=== PATIENT | male | born 1985 | race Caucasian/White ===

== ENCOUNTER 2016-05-28 23:14 | Emergency (ER) | payer SELFPAY ==
[2016-05-28] MEDS ORDERED: ASPIRIN 81 MG TABLET, CHEWABLE PO ONE (23:25)
[2016-05-29 00:03] VITALS: BP 127/77
--- NOTE | 2016-05-29 15:36 | EKG REPORT ---
SEVERITY:- NORMAL ECG - SINUS RHYTHM : Confirmed by: Rosalina Bernabe MD 29-May-2016 15:35:54
== END 2016-05-29 00:50 | disposition left against medical advice (07) ==
LOC: ER 23:14
DX: Z53.21 Procedure and treatment not carried out due to patient leaving prior to being seen by health care provider (principal)
CPT/HCPCS: 93005; 93010

== ENCOUNTER 2017-01-04 10:58 | Emergency (ER) | payer SELFPAY ==
[2017-01-04 11:02] VITALS: BP 141/76
--- NOTE | 2017-01-04 11:12 | ER Document Report ---
HPI - HPI Pain Level: 2 Notes: Patient is a 31-year-old male with no significant past medical history who presents the ED complaining of bilateral eye redness, watery discharge, itching , occasional burning, scant nasal congestion/discharge x6 days. Patient states that he just woke up with his eyes red and watery one morning. Patient states that he is able to move his eyes around without any pain or discomfort. He has not noticed any changes in his vision or headaches. Patient states that he does not have any foreign body sensation to his eye, and he does not wear any contacts. Patient denies any recent illness. No other concerns or complaints. Denies any headache, fever, head injury, neck pain, changes in vision, URI, sore throat, chest pain, palpitations, syncope, cough, shortness of breath, wheeze, dyspnea, abdominal pain, nausea/vomiting/diarrhea, urethral discharge, urinary retention, dysuria, hematuria, joint pains, or rash. Denies IV drug use. - ROS Notes: REVIEW OF SYSTEMS: CONSTITUTIONAL : Denies fever, chills, or sweats. Denies recent illness. EENT: see hpi CARDIOVASCULAR: Denies chest pain. Denies palpitations or racing or irregular heart beat. RESPIRATORY: Denies cough, cold, or chest congestion. Denies shortness of breath, difficulty breathing, or wheezing. GASTROINTESTINAL: Denies abdominal pain or distention. Denies nausea, vomiting , or diarrhea. Denies blood in vomitus, stools, or per rectum. Denies black, tarry stools. Denies constipation. GENITOURINARY: Denies difficulty urinating, painful urination, burning, frequency, blood in urine, or discharge. MUSCULOSKELETAL: Denies back or neck pain or stiffness. Denies joint pain or swelling. SKIN: Denies rash, lesions or sores. NEUROLOGICAL: Denies confusion or altered mental status. Denies passing out or loss of consciousness. Denies dizziness or lightheadedness. Denies headache. Denies weakness or paralysis or loss of use of either side. Denies problems with gait or speech. Denies sensory loss, numbness, or tingling. ALL OTHER SYSTEMS REVIEWED AND NEGATIVE. Dictation was performed using [employer] voice recognition software - DERM Skin Color: Normal Past Medical History - Social History Smoking Status: Unknown if Ever Smoked Family History: Reviewed & Not Pertinent Patient has suicidal ideation: No Patient has homicidal ideation: No Pulmonary Medical History: Reports: Hx Pneumonia Neurological Medical History: Reports: Hx Migraine - when he was young - grown out of it Renal/ Medical History: Denies: Hx Peritoneal Dialysis - Immunizations Immunizations up to date: Yes Hx Diphtheria, Pertussis, Tetanus Vaccination: Yes Vertical Provider Document - CONSTITUTIONAL Agree With Documented VS: Yes Notes: PHYSICAL EXAMINATION: GENERAL: Well-appearing, well-nourished and in no acute distress. A&Ox4 HEAD: Atraumatic, normocephalic. EYES: Pupils equal round and reactive to light, extraocular movements intact, sclera anicteric, conjunctiva are injected b/l. Watery discharge is noted. Non- tender to palp. No purulence. ENT: EAC clear b/l. TM's intact b/l without erythema, fluid, or perforation. Nares patent and without discharge. oropharynx clear without exudates. No tonsilar hypertrophy or erythema. Moist mucous membranes. No sinus tenderness. NECK: Normal range of motion, supple without lymphadenopathy. No rigidity/ meningismus. LUNGS: Breath sounds clear to auscultation bilaterally and equal. No wheezes rales or rhonchi. HEART: Regular rate and rhythm without murmurs, rubs, gallops. Musculoskeletal: FROM to passive/active. Strength 5+/5. Extremities: No cyanosis, clubbing, or edema b/l. NEUROLOGICAL: Cranial nerves grossly intact. Normal speech, normal gait. Normal sensory, motor exams PSYCH: Normal mood, normal affect. SKIN: Warm, Dry, normal turgor, no rashes or lesions noted. - INFECTION CONTROL TRAVEL OUTSIDE OF THE [place] IN LAST 30 DAYS: No - RESPIRATORY O2 Sat by Pulse Oximetry: 98 Course - Re-evaluation Re-evalutation: 01/04/17 11:35 Patient is an afebrile, well-hydrated, 31-year-old male who presents the ED with allergic conjunctivitis bilaterally along with a abrasion to then left inferior cornea Without evidence of foreign body, ulceration, or other uptake. Vitals are stable. PE is otherwise unremarkable. Visual acuity is intact. Low suspicion for any retained corneal or lid foreign body, deep space infection including orbital cellulitis/abscess, acute glaucoma, penetrating globe injury, retinal detachment, meningitis, sepsis, fracture, compartment syndrome. I will send home with a prescription for Polytrim to use as directed as well as Chromelin sodium drops. Conservative measures otherwise for symptoms with proper handwashing. Recheck with your PCM in 3-5 days. Schedule a f/u with Ophthalmology later this week. Return to the ED with any worsening/ concerning symptoms otherwise as reviewed in discharge. Patient is in agreement. - Vital Signs Vital signs: Temp Pulse Resp BP Pulse Ox 98.5 F 102 H 16 141/76 H 98 01/04/17 11:01 01/04/17 11:01 01/04/17 11:01 01/04/17 11:01 01/04/17 11:01 Procedures - Eye Procedure Bilateral Time completed: 11:30 Eye Irrigated w/ Saline (ccs): 20 Alcaine Drops Administered: Yes Fluorescein applied: Bilateral Notes: 01/04/17 11:20 Tetracaine utilized Lid everted and wiped Flourescein/wood's lamp- + abrasion to the lower cornea w/o ulceration, foreign body, or other uptake noted No complications Pt tolerated procedure well Discharge - Discharge Clinical Impression: Allergic conjunctivitis of both eyes Left corneal abrasion Qualifiers: Encounter type: initial encounter Qualified Code(s): S05.02XA - Injury of conjunctiva and corneal abrasion without foreign body, left eye, initial encounter Condition: Stable Disposition: HOME, SELF-CARE Instructions: Conjunctivitis, Allergic, Eyedrop Use ([facility]) Additional Instructions: keep eyes clean Avoid scratching/touching eyes Wash hands regularly Use eye drops as directed Maintain adequate fluid intake tylenol/ibuprofen as needed over the counter cold medication as needed for symptoms F/u: with your PCM in 2-3 days for a recheck Consider consult with Ophthalmology for ongoing/worsening symptoms Return to the ED with any worsening symptoms and/or development of fever, headache, changes in vision, eye pain, worsening eye redness, redness around the eyes, purulent discharge, sore throat, facial swelling, neck pain/stiffness , chest pain, palpitations, syncope, shortness of breath, trouble breathing, abdominal pain, n/v/d, blood in stool/urine, dysuria, or other worsening symptoms that are concerning to you. Prescriptions: Cromolyn Sodium [Crolom Opthalmic Drops] 1 - 2 drop OP QID PRN #1 bottle PRN Reason: Polymyxin B Sulf/Trimethoprim [Polytrim Eye Drops] 1 drop OD Q3H #10 ml Forms: Elevated Blood Pressure Referrals: JOEL RODRIGUEZ DO [ACTIVE STAFF] - 01/06/17
[2017-01-04] MEDS ORDERED: TETRACAINE HCL 0.5% OPH SOLN 2 ML ONE (11:25)
== END 2017-01-04 11:42 | disposition home or self-care (01) ==
LOC: ER 10:58
DX: S05.02XA Injury of conjunctiva and corneal abrasion without foreign body, left eye, initial encounter (principal); X58.XXXA Exposure to other specified factors, initial encounter; H10.13 Acute atopic conjunctivitis, bilateral
CPT/HCPCS: 99282

== ENCOUNTER 2017-03-02 17:18 | Emergency (ER) | payer OTHER ==
[2017-03-02] MEDS ORDERED: LIDOCAINE 1% INJ-PF (10 MG/ML) 30 ML SDV INJ ONE (17:44)
[2017-03-02] MEDS ORDERED: HYDROCODONE/ACETAMINOPHEN 5-325 MG TABLET PO ONE (18:26)
--- NOTE | 2017-03-02 18:46 | ER Document Report ---
ED General - General Chief Complaint: Facial Injury Stated Complaint: FALL Time Seen by Provider: 03/02/17 17:37 Mode of Arrival: Ambulatory Information source: Patient Notes: 32-year-old male [facility] from [facility] with concerns of "[facility]". Patient noted to have laceration to left cheek, abrasion inside his left ear, contusions to left face with swelling around his orbit. Patient denies any visual disturbance TRAVEL OUTSIDE OF THE [place] IN LAST 30 DAYS: No - HPI Onset: Just prior to arrival Onset/Duration: Sudden Quality of pain: Achy Severity: Moderate Pain Level: 2 Associated symptoms: Other Exacerbated by: Denies Relieved by: Denies Similar symptoms previously: No Recently seen / treated by doctor: No - Related Data Allergies/Adverse Reactions: codeine [Codeine] Allergy (Intermediate, Verified 01/04/17 11:01) N/V Past Medical History - Social History Smoking Status: Current Every Day Smoker Cigarette use (# per day): Yes Chew tobacco use (# tins/day): No Smoking Education Provided: No Frequency of alcohol use: None Drug Abuse: None Family History: Reviewed & Not Pertinent Patient has suicidal ideation: No Patient has homicidal ideation: No Pulmonary Medical History: Reports: Hx Pneumonia Neurological Medical History: Reports: Hx Migraine - when he was young - grown out of it Renal/ Medical History: Denies: Hx Peritoneal Dialysis - Immunizations Immunizations up to date: Yes Hx Diphtheria, Pertussis, Tetanus Vaccination: Yes Review of Systems - Review of Systems Notes: REVIEW OF SYSTEMS: CONSTITUTIONAL : Denies fever, chills, or sweats. Denies recent illness. EENT: Admits to pain around his left eye CARDIOVASCULAR: Denies chest pain. Denies palpitations or racing or irregular heart beat. Denies ankle edema. RESPIRATORY: Denies cough, cold, or chest congestion. Denies shortness of breath, difficulty breathing, or wheezing. GASTROINTESTINAL: Denies abdominal pain or distention. Denies nausea, vomiting , or diarrhea. Denies blood in vomitus, stools, or per rectum. Denies black, tarry stools. Denies constipation. GENITOURINARY: Denies difficulty urinating, painful urination, burning, frequency, blood in urine, or discharge. MUSCULOSKELETAL: Denies back or neck pain or stiffness. Denies joint pain or swelling. SKIN: Admits to cut the face HEMATOLOGIC : Denies easy bruising or bleeding. LYMPHATIC: Denies swollen, enlarged glands. NEUROLOGICAL: Denies confusion or altered mental status. Denies passing out or loss of consciousness. Denies dizziness or lightheadedness. Denies headache. Denies weakness or paralysis or loss of use of either side. Denies problems with gait or speech. Denies sensory loss, numbness, or tingling. Denies seizures. PSYCHIATRIC: Denies anxiety or stress. Denies depression, suicidal ideation, or homicidal ideation. ALL OTHER SYSTEMS REVIEWED AND NEGATIVE. Dictation was performed using [employer] recognition software PHYSICAL EXAMINATION: GENERAL: Overall well-appearing HEAD: Left facial swelling EYES: Ecchymosis around the left eye ENT: No septal hematoma NECK: Normal range of motion, supple without lymphadenopathy LUNGS: Breath sounds clear to auscultation bilaterally and equal. No wheezes rales or rhonchi. HEART: Regular rate and rhythm without murmurs ABDOMEN: Soft, nontender, nondistended abdomen. No guarding, no rebound. No masses appreciated. Musculoskeletal: Normal range of motion, no pitting or edema. No cyanosis. NEUROLOGICAL: Cranial nerves grossly intact. Normal speech, normal gait. Normal sensory, motor exams PSYCH: Normal mood, normal affect. SKIN: 4 cm laceration of the left cheek Physical Exam - Vital signs Vitals: Temp Pulse Resp BP Pulse Ox 98.5 F 89 17 123/82 97 03/02/17 17:22 03/02/17 17:22 03/02/17 17:22 03/02/17 17:22 03/02/17 17:22 Course - Re-evaluation Re-evalutation: 03/02/17 19:38 A 4 cm laceration was noted of the left cheek this was cleansed extensively, 4 sutures were placed, tetanus will be updated, CTs were performed of the head neck and face and a nasal fracture is noted otherwise the patient looks well. Patient has been watched in the emergency department and is otherwise medically stable. I am surprised that there is no orbital fracture and explained this to the patient but none was noted on CT. Pupils are equal round reactive to light he has full range of motion of the eyes with no limitation. There is no entrapment noted After performing a Medical Screening Examination, I estimate there is LOW risk for INTRACRANIAL HEMORRHAGE, UNSTABLE SPINE FRACTURE, CENTRAL CORD SYNDROME, CAUDA EQUINA, THORACIC AORTIC DISSECTION, PNEUMOTHORAX, PERFORATED BOWEL, RUPTURED ABDOMINAL AORTIC ANEURYSM, ACUTE TENDON RUPTURE, COMPARTMENT SYNDROME, or OPEN FRACTURE, thus I consider the discharge disposition reasonable. Also, there is no evidence or peritonitis, sepsis, or toxicity. I have reevaluated this patient multiple times and no significant life threatening changes are noted. The patient and I have discussed the diagnosis and risks, and we agree with discharging home to follow-up with their primary doctor with the understanding that symptoms and presentations can change. We also discussed returning to the Emergency Department immediately if new or worsening symptoms occur. We have discussed the symptoms which are most concerning (e.g., bloody stool, fever, changing or worsening pain, vomiting) that necessitate immediate return. - Vital Signs Vital signs: Temp Pulse Resp BP Pulse Ox 98.5 F 89 17 123/82 97 03/02/17 17:22 03/02/17 17:22 03/02/17 17:22 03/02/17 17:22 03/02/17 17:22 - Diagnostic Test Radiology reviewed: Image reviewed, Reports reviewed Discharge - Discharge Clinical Impression: Fall Qualifiers: Encounter type: initial encounter Qualified Code(s): W19.XXXA - Unspecified fall, initial encounter Nasal fracture Qualifiers: Encounter type: initial encounter Fracture type: closed Qualified Code(s): S02.2XXA - Fracture of nasal bones, initial encounter for closed fracture Cheek laceration Qualifiers: Encounter type: initial encounter Laterality: left Qualified Code(s): S01.412A - Laceration without foreign body of left cheek and temporomandibular area, initial encounter Condition: Stable Disposition: HOME, SELF-CARE Instructions: Soap Cleansing ([facility]), Laceration Care ([facility]) Additional Instructions: Follow-up in 5 days for removal of suture immediately if there is any sign of infection Prescriptions: Ibuprofen [Motrin 800 mg Tablet] 800 mg PO Q8H PRN #30 tab PRN Reason:
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
[2017-03-02] MEDS ORDERED: DIPH/PERTUSS(ACELL)/TETANUS VAC/PF 0.5 ML SYR (>=10YO) IM ONE (19:36)
[2017-03-02] MEDS ORDERED: IBUPROFEN 800 MG TABLET PO ONE (19:57)
[2017-03-02 20:48] VITALS: BP 121/74
== END 2017-03-02 19:51 | disposition home or self-care (01) ==
LOC: ER 17:18
PROC: 0HQ1XZZ Repair Face Skin, External Approach (ICD-10-PCS; principal; 2017-03-02)
DX: S01.412A Laceration without foreign body of left cheek and temporomandibular area, initial encounter (principal); S00.412A Abrasion of left ear, initial encounter; S00.12XA Contusion of left eyelid and periocular area, initial encounter; W19.XXXA Unspecified fall, initial encounter; Y92.199 Unspecified place in other specified residential institution as the place of occurrence of the external cause; F17.210 Nicotine dependence, cigarettes, uncomplicated; Z88.6 Allergy status to analgesic agent
CPT/HCPCS: 99284; 70450; 70486; 72125; 12013; J3490

== ENCOUNTER 2017-05-23 04:13 | Emergency (ER) | payer OTHER ==
--- NOTE | 2017-05-23 04:44 | RADIOLOGY REPORT (SQ) ---
EXAM DESCRIPTION: HAND RIGHT 3 VIEWS CLINICAL HISTORY: 32 years, Male, injury COMPARISON: None. NUMBER OF VIEWS: 3 Findings: Bones, joints, and soft tissues of HAND RIGHT appear intact. No significant effusion. IMPRESSION: No acute findings.
[2017-05-23] MEDS ORDERED: IBUPROFEN 600 MG TABLET PO ONE (05:09)
[2017-05-23] MEDS ORDERED: CLINDAMYCIN HCL 150 MG CAPSULE PO ONE (05:09)
[2017-05-23] MEDS ORDERED: ONDANSETRON 4 MG TAB.RAPDIS PO ONE (05:09)
--- NOTE | 2017-05-23 05:14 | ER Document Report ---
ED General - General Chief Complaint: Finger Injury Stated Complaint: FINGER INJURY Time Seen by Provider: 05/23/17 04:38 Notes: Patient is a 32-year-old male who says he externally hit his finger several times with a hammer. Patient says he hit his right middle finger. 7 a few days ago but the last couple hours he has noticed some swelling around the edge of the nail. He says is very painful. No other complaints at this time. TRAVEL OUTSIDE OF THE [place] IN LAST 30 DAYS: No - Related Data Allergies/Adverse Reactions: codeine [Codeine] Allergy (Intermediate, Verified 01/04/17 11:01) N/V Past Medical History - Social History Smoking Status: Current Every Day Smoker Chew tobacco use (# tins/day): No Frequency of alcohol use: Occasional Drug Abuse: None Family History: Reviewed & Not Pertinent Patient has suicidal ideation: No Patient has homicidal ideation: No Pulmonary Medical History: Reports: Hx Pneumonia Neurological Medical History: Reports: Hx Migraine - when he was young - grown out of it Renal/ Medical History: Denies: Hx Peritoneal Dialysis - Immunizations Immunizations up to date: Yes Hx Diphtheria, Pertussis, Tetanus Vaccination: Yes Review of Systems - Review of Systems Notes: My Normal Review Basic REVIEW OF SYSTEMS: CONSTITUTIONAL : Denies fever, chills, or sweats. Denies recent illness. MUSCULOSKELETAL: Right middle finger pain. SKIN: Denies rash or skin lesions. NEUROLOGICAL: Denies sensory or motor loss. ALL OTHER SYSTEMS REVIEWED AND NEGATIVE. Physical Exam - Vital signs Vitals: Temp Pulse Resp BP Pulse Ox 98 F 99 18 151/97 H 96 05/23/17 04:17 05/23/17 04:17 05/23/17 04:17 05/23/17 04:17 05/23/17 04:17 - Notes Notes: General Appearance: Well nourished, alert, cooperative, no acute distress, moderate obvious discomfort. Vitals: reviewed, See vital signs table. Extremities: strength 5/5 in all extremities, good pulses in all extremities, patient has some swelling in the paronychia of the middle finger of the right hand. Consistent with paronychial infection. Also slight bruising from where he hit with a hammer as well. This is on the distal portion of the finger. There is no redness or swelling into the remainder of the finger. Neuro: speech clear, oriented x 3, normal affect, responds appropriately to questions. Course - Re-evaluation Re-evalutation: 05/23/17 05:46 I made a small incision in the paronychia with an 18-gauge needle. The slough pus to drain. Patient feels much improved. I will place patient on antibiotics. I encourage him to return to ER immediately if he has recurrent swelling, fevers, worsening pain, or feels unwell. Patient agrees with plan will be discharged home. Dictation of this chart was performed using voice recognition software; therefore, there may be some unintended grammatical errors. - Vital Signs Vital signs: Temp Pulse Resp BP Pulse Ox 98 F 99 18 151/97 H 96 05/23/17 04:17 05/23/17 04:17 05/23/17 04:17 05/23/17 04:17 05/23/17 04:17 Discharge - Discharge Clinical Impression: Paronychia Condition: Good Disposition: HOME, SELF-CARE Additional Instructions: Please return to the ER immediately if you develop recurrence of swelling, fevers, or worsening pain. Please take the antibiotics as prescribed. Please keep your finger covered when at work. Prescriptions: Clindamycin HCl 300 mg PO ASDIR #56 capsule
[2017-05-23 06:37] VITALS: BP 125/66
== END 2017-05-23 06:34 | disposition home or self-care (01) ==
LOC: ER 04:13
DX: L03.011 Cellulitis of right finger (principal); M79.644 Pain in right finger(s); W27.8XXA Contact with other nonpowered hand tool, initial encounter; Y99.0 Civilian activity done for income or pay; F17.200 Nicotine dependence, unspecified, uncomplicated; Z88.5 Allergy status to narcotic agent
CPT/HCPCS: 99283; 73130; 10060; S0119

== ENCOUNTER 2017-05-28 20:28 | Emergency (ER) | payer SELFPAY ==
--- NOTE | 2017-05-28 21:58 | ER Document Report ---
HPI - HPI Pain Level: 4 Context: Patient is a 32-year-old male presents emergent primary with a chief complaint of posterior neck abscess. Patient states his been there for about 4 days but got worse today so he tried to pop it at home. He has been taking clindamycin for a paronychia on his hand. He admits to a history of abscesses. Is a current smoker. Denies any fevers or chills Past Medical History - Social History Smoking Status: Current Every Day Smoker Family History: Reviewed & Not Pertinent Pulmonary Medical History: Reports: Hx Pneumonia Neurological Medical History: Reports: Hx Migraine - when he was young - grown out of it Renal/ Medical History: Denies: Hx Peritoneal Dialysis - Immunizations Immunizations up to date: Yes Hx Diphtheria, Pertussis, Tetanus Vaccination: Yes Vertical Provider Document - CONSTITUTIONAL Agree With Documented VS: Yes Notes: PHYSICAL EXAM GENERAL: Alert, interacts well. HEAD: Normocephalic, atraumatic. EYES: Pupils equal, round, and reactive to light. Extraocular movements intact. ENT: Oral mucosa moist, tongue midline. NECK: Full range of motion. Supple. Trachea midline. NEUROLOGICAL: Alert and oriented x4. Normal speech. PSYCH: Normal affect, normal mood. SKIN: Warm, dry, normal turgor. Abscess with surrounding cellulitis in the posterior neck with central fluctuance and scabbing. - INFECTION CONTROL TRAVEL OUTSIDE OF THE [place] IN LAST 30 DAYS: No Course - Re-evaluation Re-evalutation: 05/28/17 23:03 Patient is a 32-year-old male presents with an abscess in the posterior neck. Patient otherwise hemodynamically stable, no acute distress and afebrile. Site was anesthetized and I indeed with minimal purulent drainage. No packing was placed. Patient educated on proper wound care and initiated on additional antibiotic coverage. Patient given strict return precautions otherwise stable for discharge home - Vital Signs Vital signs: Temp Pulse Resp BP Pulse Ox 99.2 F 110 H 153/105 H 98 05/28/17 20:46 05/28/17 20:46 05/28/17 20:46 05/28/17 20:46 Procedures - Incision and Drainage Posterior Neck Type: Simple Anesthetic type: 1% Lidocaine mL's of anesthetic: 2 Blade size: 11 I&D procedure: Betadine prep applied Incision Method: Incision made by scalpel Discharge - Discharge Clinical Impression: Abscess Condition: Good Disposition: HOME, SELF-CARE Instructions: Abscess ([facility]), Cephalexin ([facility]), Post Incision and Drainage Prescriptions: Cephalexin Monohydrate [Keflex 500 mg Capsule] 500 mg PO Q6H 5 Days capsule Forms: Elevated Blood Pressure Referrals: NIMISHA TINOCO MD [ACTIVE STAFF] - Follow up in 3-5 days
[2017-05-28] MEDS ORDERED: CEPHALEXIN 500 MG CAPSULE PO ONE (22:09)
[2017-05-28] MEDS ORDERED: ACETAMINOPHEN 325 MG TABLET PO ONE (22:09)
[2017-05-28] MEDS ORDERED: IBUPROFEN 800 MG TABLET PO ONE (22:09)
[2017-05-28 23:26] VITALS: BP 135/101
== END 2017-05-28 23:26 | disposition home or self-care (01) ==
LOC: ER 20:28
DX: L02.11 Cutaneous abscess of neck (principal); L03.221 Cellulitis of neck; L03.019 Cellulitis of unspecified finger; F17.200 Nicotine dependence, unspecified, uncomplicated
CPT/HCPCS: 99283

== ENCOUNTER 2017-05-31 15:27 | Emergency (ER) | payer OTHER ==
[2017-05-31] MEDS ORDERED: ONDANSETRON 4 MG TAB.RAPDIS PO ONE (15:48)
[2017-05-31] MEDS ORDERED: IBUPROFEN 800 MG TABLET PO ONE (15:48)
[2017-05-31] MEDS ORDERED: ACETAMINOPHEN 325 MG TABLET PO ONE (15:48)
[2017-05-31] MEDS ORDERED: SULFAMETHOXAZOLE/TRIMETHOPRIM 800-160 MG TABLET PO ONE (15:48)
[2017-05-31] MEDS ORDERED: CEPHALEXIN 500 MG CAPSULE PO ONE (15:48)
[2017-05-31] MEDS ORDERED: LIDOCAINE 4%/TETRACAINE 0.5%/EPI 0.18% 5 ML TOPICAL SOLN TOP ONE (15:48)
--- NOTE | 2017-05-31 15:48 | ER Document Report ---
HPI - HPI Patient complains to provider of: neck abscess Onset: Last week Context: 32 yo male from the skilled nursing needs recheck on post. neck abscess incised few days ago. Was not able to take the antibiotics bc he went to skilled nursing. Associated Symptoms: None Exacerbated by: Denies Relieved by: Denies - ROS ROS below otherwise negative: Yes Systems Reviewed and Negative: Yes All other systems reviewed and negative Past Medical History - General Information source: Patient - Social History Smoking Status: Current Every Day Smoker Frequency of alcohol use: None Drug Abuse: None Lives with: Family Family History: Reviewed & Not Pertinent Pulmonary Medical History: Reports: Hx Pneumonia Neurological Medical History: Reports: Hx Migraine - when he was young - grown out of it Renal/ Medical History: Denies: Hx Peritoneal Dialysis Surgical Hx: Negative - Immunizations Immunizations up to date: Yes Hx Diphtheria, Pertussis, Tetanus Vaccination: Yes Vertical Provider Document - CONSTITUTIONAL Agree With Documented VS: Yes Exam Limitations: No Limitations General Appearance: No Apparent Distress - INFECTION CONTROL TRAVEL OUTSIDE OF THE [place] IN LAST 30 DAYS: No - HEENT HEENT: Normocephalic - NECK Neck: Supple Notes: absces central post neck with central crusting exudate, inflamed surrounding tissue/ tender, and suspect persistant abscess - RESPIRATORY Respiratory: Breath Sounds Normal, No Respiratory Distress - CARDIOVASCULAR Cardiovascular: Regular Rate - NEURO Level of Consciousness: Awake, Alert - DERM Integumentary: Warm, Abscess - see above Course - Re-evaluation Re-evalutation: 05/31/17 Procedure: L.E.T softened the crust, removed the exudate, healthy tissue base of absecss. Discharge - Discharge Clinical Impression: neck abscess Condition: Good Disposition: HOME, SELF-CARE Instructions: Abscess ([facility]), Cephalexin ([facility]), Sulfa Medications ([facility]), Trimethoprim-Sulfa ([facility]), Warm Packs ([facility]) Additional Instructions: warm compress three times per day keflex 4 times per day spetra DS 2 times per day recheck abscess in 48 hours motrin 800 mg three times per day as needed for pain Prescriptions: Ibuprofen [Motrin 800 mg Tablet] 800 mg PO Q8HP PRN #30 tablet PRN Reason: Cephalexin Monohydrate [Keflex 500 mg Capsule] 500 mg PO QID #28 capsule Sulfamethoxazole/Trimethoprim [Sulfamethoxazole-Tmp Ds Tablet] 1 each PO BID # 14 tablet
[2017-05-31 15:58] VITALS: BP 118/81
== END 2017-05-31 16:50 | disposition home or self-care (01) ==
LOC: ER 15:27
DX: Z48.817 Encounter for surgical aftercare following surgery on the skin and subcutaneous tissue (principal); L02.11 Cutaneous abscess of neck; T36.96XA Underdosing of unspecified systemic antibiotic, initial encounter; Z91.128 Patient's intentional underdosing of medication regimen for other reason; Y92.149 Unspecified place in prison as the place of occurrence of the external cause; F17.200 Nicotine dependence, unspecified, uncomplicated
CPT/HCPCS: 99283; S0119; J3490

== ENCOUNTER 2018-01-15 22:29 | Emergency (ER) | payer SELFPAY ==
[2018-01-16] MEDS ORDERED: CEFTRIAXONE INJ 250 MG VIAL IM ONE (01:10)
[2018-01-16] MEDS ORDERED: AZITHROMYCIN 250 MG TABLET PO ONE (01:10)
[2018-01-16] MEDS ORDERED: LIDOCAINE 1% INJ-PF (10 MG/ML) 30 ML SDV INJ ONE (01:10)
--- NOTE | 2018-01-16 01:20 | ER Document Report ---
HPI - HPI Patient complains to provider of: Penile discharge Time Seen by Provider: 01/16/18 00:27 Onset: This morning Onset/Duration: Gradual Quality of pain: Burning Pain Level: 3 Context: Patient presents complaining of penile discharge and dysuria that started today. Patient denies any fever or back pain. Patient is concerned about possible sexually transmitted infection Associated Symptoms: Other - Penile discharge Exacerbated by: Denies Relieved by: Denies Similar symptoms previously: Yes Recently seen / treated by doctor: No - ROS ROS below otherwise negative: Yes Systems Reviewed and Negative: Yes All other systems reviewed and negative - CONSTITUTIONAL Constitutional: DENIES: Fever, Chills - EENT EENT: DENIES: Sore Throat, Ear Pain, Eye problems - NEURO Neurology: DENIES: Headache - GASTROINTESTINAL Gastrointestinal: DENIES: Abdominal Pain - URINARY Urinary: REPORTS: Dysuria. DENIES: Urgency, Frequency - MUSCULOSKELETAL Musculoskeletal: DENIES: Extremity pain, Back Pain - DERM Skin Color: Normal Skin Problems: None Past Medical History - General Information source: Patient - Social History Smoking Status: Current Every Day Smoker Chew tobacco use (# tins/day): No Frequency of alcohol use: None Drug Abuse: None Occupation: [employer] Family History: Reviewed & Not Pertinent Patient has suicidal ideation: No Patient has homicidal ideation: No Pulmonary Medical History: Reports: Hx Pneumonia Neurological Medical History: Reports: Hx Migraine - when he was young - grown out of it Renal/ Medical History: Denies: Hx Peritoneal Dialysis Surgical Hx: Negative - Immunizations Immunizations up to date: Yes Hx Diphtheria, Pertussis, Tetanus Vaccination: Yes Vertical Provider Document - CONSTITUTIONAL Agree With Documented VS: Yes Exam Limitations: No Limitations General Appearance: WD/WN, No Apparent Distress - INFECTION CONTROL TRAVEL OUTSIDE OF THE [place] IN LAST 30 DAYS: No - HEENT HEENT: Atraumatic, Normal ENT Exam, Normocephalic - NECK Neck: Normal Inspection - RESPIRATORY Respiratory: Breath Sounds Normal, No Respiratory Distress - CARDIOVASCULAR Cardiovascular: Regular Rate, Regular Rhythm - GI/ABDOMEN Gastrointestinal: Abdomen Soft, Abdomen Non-Tender - REPRODUCTIVE Male Genitalia: Abnormal Inspection - Yellow discharge noted from urethra, RN is standby Notes: Normal cremasteric reflex, no scrotal tenderness, patient with bilateral inguinal lymphadenopathy - BACK Back: Normal Inspection. negative: CVA Tenderness-Right, CVA Tenderness-Left - MUSCULOSKELETAL/EXTREMETIES Musculoskeletal/Extremeties: MAEW, FROM - NEURO Level of Consciousness: Awake, Alert, Appropriate Motor/Sensory: No Motor Deficit - DERM Integumentary: Warm, Dry Course - Re-evaluation Re-evalutation: 01/16/18 Patient encouraged to follow-up with the health department if he would like any additional testing such as HIV testing. Safe sex practices encouraged. Patient without any testicular tenderness, no concern for epididymitis or UTI at this time. - Vital Signs Vital signs: Temp Pulse Resp BP Pulse Ox 97.7 F 102 H 18 142/91 H 100 01/15/18 22:33 01/15/18 22:33 01/15/18 22:33 01/15/18 22:33 01/15/18 22:33 - Laboratory Laboratory results interpreted by me: 01/16/18 02:34 Labs- Entire Visit 01/16/18 01/16/18 00:45 00:45 Urine Color YELLOW Urine Appearance CLEAR Urine pH 6.0 Ur Specific [place] 1.021 Urine Protein NEGATIVE Urine Glucose (UA) NEGATIVE Urine Ketones NEGATIVE Urine Blood NEGATIVE Urine Nitrite NEGATIVE Urine Bilirubin NEGATIVE Urine Urobilinogen 4.0 H Ur Leukocyte Esterase NEGATIVE Urine WBC (Auto) 1 Urine RBC (Auto) 0 Urine Mucus (Auto) RARE Urine Ascorbic Acid NEGATIVE Chlamydia DNA (PCR) Cancelled N.gonorrhoeae DNA (PCR) Cancelled Discharge - Discharge Clinical Impression: Penile discharge, Urethritis Condition: Stable Disposition: HOME, SELF-CARE Instructions: Azithromycin ([facility]), Rocephin ([facility]), Urethritis ([facility]) Additional Instructions: Return immediately for any new or worsening symptoms Followup with your primary care provider, call tomorrow to make a followup appointment Cultures are pending, will call if you need any different treatment Follow-up at the health department for a recheck Referrals: [facility]ALTH DEPT,[facility] [NO LOCAL MD] - Follow up as needed
[2018-01-16 01:25] LABS: APPEARANCE,URINE CLEAR; BILIRUBIN,URINE NEGATIVE (NEGATIVE); COLOR,URINE YELLOW; GLUCOSE, URINE NEGATIVE (NEGATIVE); KETONES,URINE NEGATIVE (NEGATIVE); LEUKOCYTE ESTERASE,URINE NEGATIVE (NEGATIVE); NITRITE,URINE NEGATIVE (NEGATIVE); PROTEIN,URINE NEGATIVE (NEGATIVE); URINE SPECIFIC GRAVITY 1.021
[2018-01-16 01:56] VITALS: BP 119/75
[2018-01-16 03:06] LABS: CHLAM PCR NOT DETECTED (NOT DETECT); GON PCR DETECTED (NOT DETECT)
== END 2018-01-16 01:58 | disposition home or self-care (01) ==
LOC: ER 22:29
DX: N34.2 Other urethritis (principal); R36.9 Urethral discharge, unspecified; R30.0 Dysuria; F17.200 Nicotine dependence, unspecified, uncomplicated
CPT/HCPCS: 99283; 96372; 81001; 87491; 87591; J3490; J0696

== ENCOUNTER 2018-02-11 13:15 | Emergency (ER) | payer SELFPAY ==
[2018-02-11] MEDS ORDERED: NALOXONE HCL INJ 2 MG/2 ML DISP.SYRIN IV ONE (13:17)
--- NOTE | 2018-02-11 13:23 | ER Document Report ---
ED General - General Stated Complaint: POSSIBLE OVERDOSE Time Seen by Provider: 02/11/18 13:17 TRAVEL OUTSIDE OF THE [place] IN LAST 30 DAYS: No - HPI Notes: Patient is a 33-year-old male that presents to the emergency department for chief complaint of heroin overdose. Patient was dropped off in the lobby by another male. Triage was told that patient became unresponsive in the car and reportedly the male that dropped him off was asking if we had any Narcan. That male left prior to me being able to talk to him. Initial HPI limited because of patient's unresponsive state Past Medical History: Negative Past Surgical History: Negative Social History: Heroin abuse. Daily tobacco. Denies alcohol. Family History: Reviewed and noncontributory for presenting illness Allergies: Reviewed, see documented allergy list. REVIEW OF SYSTEMS: PHYSICAL EXAMINATION: Vital signs reviewed, nursing noted reviewed. GENERAL: Unresponsive, GCS 3 HEAD: Atraumatic, normocephalic. EYES: Pinpoint minimally reactive pupils, sclera anicteric, conjunctiva are injected. ENT: nares patent, oropharynx clear without exudates. Moist mucous membranes. NECK: supple without lymphadenopathy LUNGS: Apneic HEART: Tachycardic and regular rhythm without murmurs ABDOMEN: Soft No masses appreciated. EXTREMITIES: Nontender, good range of motion, no pitting or edema. NEUROLOGICAL: GCS 3. Urine and fecal incontinence SKIN: Warm, Dry, normal turgor, bilateral antecubital fossa pinpoint puncture wounds with no bleeding consistent with IV drug use - Related Data Allergies/Adverse Reactions: codeine [Codeine] Allergy (Intermediate, Verified 02/11/18 13:29) N/V Past Medical History - Social History Smoking Status: Current Every Day Smoker Family History: Reviewed & Not Pertinent Pulmonary Medical History: Reports: Hx Pneumonia Neurological Medical History: Reports: Hx Migraine - when he was young - grown out of it Renal/ Medical History: Denies: Hx Peritoneal Dialysis - Immunizations Immunizations up to date: Yes Hx Diphtheria, Pertussis, Tetanus Vaccination: Yes Physical Exam - Vital signs Vitals: Resp BP Pulse Ox 13 114/82 98 02/11/18 13:26 02/11/18 13:26 02/11/18 13:26 Course - Re-evaluation Re-evalutation: 02/11/18 13:22 Patient arrived with a GCS of 3 and was completely apneic. Bag valve mask ventilation was initiated. After 2 mg IV Narcan patient had complete return to normal mentation. He now was a GCS of 15. He does endorse heroin injection prior to arrival in the emergency room. He denies any chronic medical issues or surgeries in the past. He does not recall overdosing in the past. He has no complaints currently. Patient placed on telemetry monitoring. 02/11/18 16:19 Patient has remained hemodynamically stable and breathing well on room air for the last 3 hours. He will be discharged home in stable condition. He was discharged to a sober caregiver. He was counseled on heroin abuse. - Vital Signs Vital signs: Temp Pulse Resp BP Pulse Ox 98.1 F 13 109/77 98 02/11/18 15:33 02/11/18 15:01 02/11/18 15:01 02/11/18 15:01 Critical Care Note - Critical Care Note Total time excluding time spent on procedures (mins): 35 Comments: Patient unresponsive with no spontaneous respirations at presentation. He was stabilized but has a high potential for clinical deterioration. Multiple frequent re-evaluations and clinical monitoring of patient's respiratory status Discharge - Discharge Clinical Impression: Heroin overdose Qualifiers: Encounter type: initial encounter Injury intent: accidental or unintentional Qualified Code(s): T40.1X1A - Poisoning by heroin, accidental (unintentional), initial encounter Condition: Stable Disposition: HOME, SELF-CARE Instructions: Overdose ([facility]) Additional Instructions: Please return to the emergency department if you have any worsening, or concern of your symptoms. Please return to the emergency department if you develop chest pain, difficulty breathing, severe abdominal pain, or ongoing vomiting. Please follow-up with your primary care physician in 2-3 days and any other recommended physicians. If prescribed, take all medications as directed. If you have any questions or concerns do not hesitate to return the emergency department for evaluation. Stop using heroin Referrals: [facility] [Provider Group] - Follow up as needed
[2018-02-11] MEDS ORDERED: NALOXONE HCL INJ/PF 0.4 MG/1 ML SDV ONE (14:46)
[2018-02-11 15:27] VITALS: BP 109/77
== END 2018-02-11 16:00 | disposition home or self-care (01) ==
LOC: ER 13:15
DX: T40.1X1A Poisoning by heroin, accidental (unintentional), initial encounter (principal); R00.0 Tachycardia, unspecified; X58.XXXA Exposure to other specified factors, initial encounter; F17.200 Nicotine dependence, unspecified, uncomplicated; Z88.6 Allergy status to analgesic agent
CPT/HCPCS: 99285; 96374; J2310 ×2

== ENCOUNTER 2019-04-25 18:03 | Emergency (ER) | payer SELFPAY ==
[2019-04-25 18:08] VITALS: BP 153/97
--- NOTE | 2019-04-25 18:41 | ER Document Report ---
HPI - HPI Time Seen by Provider: 04/25/19 18:29 Pain Level: 4 Context: Patient is a 34-year-old male who presents the emergency department with a chief complaint of sore throat. Patient states that he started with his sore throat about a week ago. Patient attempted to take fish amoxicillin from the [employer] [facility]. Patient states that his sore throat is back. Patient admits to having oral sex. States he has "blisters" in his mouth. - ROS Systems Reviewed and Negative: Yes All other systems reviewed and negative - CONSTITUTIONAL Constitutional: DENIES: Fever, Chills - EENT EENT: REPORTS: Sore Throat, Nasal Drainage-Clear. DENIES: Ear Pain, Nasal Drainage-Purulent, Congestion, Eye problems - NEURO Neurology: DENIES: Headache, Weakness - CARDIOVASCULAR Cardiovascular: DENIES: Chest pain - RESPIRATORY Respiratory: DENIES: Trouble Breathing, Coughing - REPRODUCTIVE Reproductive: DENIES: : - DERM Skin Color: Normal Skin Problems: None Past Medical History - General Information source: Patient - Social History Smoking Status: Current Some Day Smoker Family History: Reviewed & Not Pertinent Patient has suicidal ideation: No Patient has homicidal ideation: No Pulmonary Medical History: Reports: Hx Pneumonia Neurological Medical History: Reports: Hx Migraine - when he was young - grown out of it Renal/ Medical History: Denies: Hx Peritoneal Dialysis - Immunizations Immunizations up to date: Yes Hx Diphtheria, Pertussis, Tetanus Vaccination: Yes Vertical Provider Document - CONSTITUTIONAL Agree With Documented VS: Yes Exam Limitations: No Limitations General Appearance: No Apparent Distress - INFECTION CONTROL TRAVEL OUTSIDE OF THE [place] IN LAST 30 DAYS: No - HEENT HEENT: Atraumatic, Normocephalic, PERRLA, Pharyngeal Tenderness, Pharyngeal Erythema. negative: Conjuctival Injection, Pharyngeal Exudate, Tympanic Membrane Red, Tympanic Membrane Bulging - NECK Neck: Normal Inspection. negative: Lymphadenopathy-Left, Lymphadenopathy-Right - RESPIRATORY Respiratory: Breath Sounds Normal, No Respiratory Distress - CARDIOVASCULAR Cardiovascular: Regular Rate, Regular Rhythm, No Murmur Pulses: Normal: Radial - MUSCULOSKELETAL/EXTREMETIES Musculoskeletal/Extremeties: FROM - NEURO Level of Consciousness: Awake, Alert, Appropriate Motor/Sensory: No Motor Deficit, No Sensory Deficit, No Pronator Drift - DERM Integumentary: Warm, Dry, No Rash Course - Re-evaluation Re-evalutation: 04/25/19 20:22 Rapid strep is negative. Patient will be sent home on Flonase. He will also be given a gram of Rocephin. Throat culture was sent. Throat culture for gonorrhea and chlamydia were also sent. Advised the patient that he will be ca lled if any of them are positive. His "blisters" appear to be apthous ulcers. He is in agreement with this plan. Follow-up precautions were given. Verbal discharge instructions were given to the patient. They verbalized understanding. They are stable for discharge. - Vital Signs Vital signs: Temp Pulse Resp BP Pulse Ox 98.3 F 104 H 20 153/97 H 96 04/25/19 18:07 04/25/19 18:07 04/25/19 18:07 04/25/19 18:07 04/25/19 18:07 Discharge - Discharge Clinical Impression: Sore throat Condition: Stable Disposition: HOME, SELF-CARE Instructions: Sore Throat ([facility]) Additional Instructions: You were seen today in the emergency department for sore throat. Your rapid strep test is negative. If the culture comes back positive, you will be called. You are being started on Flonase to help with the drainage in the back of your throat. If your symptoms are worse, please return to the emergency department. Prescriptions: Fluticasone Propionate [Flonase Nasal [place] 50 Mcg/[place] 16 gm] 2 sprays NASL DAILY #1 inhaler Forms: Return to Work Referrals: [facility] [Provider Group] - Follow up as needed [facility] [Provider Group] - Follow up as needed
[2019-04-25] MEDS ORDERED: CEFTRIAXONE INJ 1000 MG VIAL IM ONE (20:26)
[2019-04-25] MEDS ORDERED: LIDOCAINE 1% INJ-PF (10 MG/ML) 30 ML SDV INJ ONE (20:26)
== END 2019-04-25 20:54 | disposition home or self-care (01) ==
LOC: ER 18:03
DX: J02.9 Acute pharyngitis, unspecified (principal); K12.0 Recurrent oral aphthae; F17.200 Nicotine dependence, unspecified, uncomplicated
CPT/HCPCS: 99283; 96372; 87491; 87591; 87070; 87880; J3490; J0696

== ENCOUNTER 2019-07-11 05:31 | Emergency (ER) | payer OTHER ==
[2019-07-11 06:20] VITALS: BP 148/88
[2019-07-11] MEDS ORDERED: CLINDAMYCIN HCL 150 MG CAPSULE PO ONE (06:40)
--- NOTE | 2019-07-11 06:52 | ER Document Report ---
HPI - HPI Time Seen by Provider: 07/11/19 06:34 Pain Level: Denies Context: Patient is a 34-year-old male that comes emergency department for chief complaint of dental pain. Reports swelling to the left side of the face that started last night but he has had developing pain over the past 2 days. He has multiple dental caries, he has had one extraction, he does not currently have a dentist. Patient denies any daily medications. He reports a medical history of opiate dependence and states that he just went "cold turkey" and just completed day 7, he states that he is specifically avoiding these and he would like to take ibuprofen for pain. He states that he did have vomiting and weight loss but his symptoms have resolved and he declines any evaluation or management for opiate withdrawals. He denies any other complaints. - CONSTITUTIONAL Constitutional: REPORTS: Chills. DENIES: Fever - EENT EENT: DENIES: Sore Throat, Ear Pain, Eye problems - NEURO Neurology: DENIES: Headache, Weakness, Vision blurred, Dizzinesss / Vertigo - CARDIOVASCULAR Cardiovascular: DENIES: Chest pain - RESPIRATORY Respiratory: DENIES: Trouble Breathing, Coughing - GASTROINTESTINAL Gastrointestinal: DENIES: Abdominal Pain, Black / Bloody Stools - URINARY Urinary: DENIES: Dysuria, Urgency, Frequency - REPRODUCTIVE Reproductive: DENIES: : - MUSCULOSKELETAL Musculoskeletal: DENIES: Extremity pain Past Medical History - General Information source: Patient - Social History Smoking Status: Former Smoker Chew tobacco use (# tins/day): No Drug Abuse: Other - former opiate dependence/abuse Lives with: Family Family History: Reviewed & Not Pertinent Patient has homicidal ideation: No Pulmonary Medical History: Reports: Hx Pneumonia Neurological Medical History: Reports: Hx Migraine - when he was young - grown out of it Renal/ Medical History: Denies: Hx Peritoneal Dialysis - Immunizations Immunizations up to date: Yes Hx Diphtheria, Pertussis, Tetanus Vaccination: Yes Vertical Provider Document - CONSTITUTIONAL General Appearance: WD/WN, No Apparent Distress - INFECTION CONTROL TRAVEL OUTSIDE OF THE [place] IN LAST 30 DAYS: No - HEENT HEENT: Atraumatic, Normocephalic, PERRLA. negative: Conjuctival Injection, Normal ENT Exam - There is soft tissue swelling to the left side of the face, however there is no trismus and patient can open his mouth completely. Normal oropharyngeal exam except for dental exam, see mouth diagram. Normal sinus and nasal exam. Unremarkable otherwise. Mouth Diagram: 1 - Dental caries with adjacent erythema of the gumline but no induration or fluctuance 2 - Dental caries with adjacent erythema of the gumline but no induration or fluctuance - NECK Neck: Normal Inspection. negative: Lymphadenopathy-Left, Lymphadenopathy-Right - RESPIRATORY Respiratory: Breath Sounds Normal, No Respiratory Distress - CARDIOVASCULAR Cardiovascular: Regular Rate, Regular Rhythm - GI/ABDOMEN Gastrointestinal: Abdomen Soft, Abdomen Non-Tender. negative: Abdomen Tender - BACK Back: Normal Inspection - MUSCULOSKELETAL/EXTREMETIES Musculoskeletal/Extremeties: MAEW, FROM, Non-Tender - NEURO Level of Consciousness: Awake, Alert, Appropriate Motor/Sensory: No Motor Deficit, No Sensory Deficit - DERM Integumentary: Warm, Dry, No Rash Course - Re-evaluation Re-evalutation: Patient does have some facial swelling, no trismus, no signs of abscess in the mouth, no other concerning findings. Patient will be referred to a local dent ist, placed on antibiotics, discussed expectations, follow-up, and return precautions. Patient states appreciation and agreement. Stable and well- appearing at time of discharge. - Vital Signs Vital signs: Temp Pulse Resp BP Pulse Ox 98.3 F 83 18 148/88 H 99 07/11/19 06:26 07/11/19 06:19 07/11/19 06:19 07/11/19 06:19 07/11/19 06:19 Discharge - Discharge Clinical Impression: Dental infection, Pain, dental, Facial swelling Condition: Stable Disposition: HOME, SELF-CARE Additional Instructions: Your evaluation is consistent with a dental infection. Take the antibiotics as prescribed to completion. Take 800 mg of ibuprofen every 8 hours, you can also combine this with 1000 mg of Tylenol every 6 hours. Follow-up with the dentist referral, call for your appointment, if you do not this will continue to occur. Return for any concerning or worsening symptoms including worsening swelling of the face. [address], [id number] Prescriptions: Clindamycin HCl [Cleocin 150 mg Capsule] 150 mg PO Q6 #56 capsule Forms: Return to Work
== END 2019-07-11 06:50 | disposition home or self-care (01) ==
LOC: ER 05:31
DX: K04.7 Periapical abscess without sinus (principal); K08.89 Other specified disorders of teeth and supporting structures; R22.0 Localized swelling, mass and lump, head; R51 Headache; K02.9 Dental caries, unspecified; R11.10 Vomiting, unspecified; Z87.891 Personal history of nicotine dependence
CPT/HCPCS: 99282

== ENCOUNTER 2019-11-15 19:58 | Emergency (ER) | payer OTHER ==
[2019-11-15] MEDS ORDERED: KETOROLAC TROMETHAMINE 60 MG/2 ML SDV IM ONE (20:36)
[2019-11-15] MEDS ORDERED: CLINDAMYCIN HCL 150 MG CAPSULE PO ONE (20:36)
[2019-11-15] MEDS ORDERED: HYDROCODONE/ACETAMINOPHEN 10-325 MG TABLET PO ONE (20:51)
[2019-11-15] MEDS ORDERED: ONDANSETRON HCL INJ/PF 4 MG/2 ML SDV IV ONE (20:52)
[2019-11-15] MEDS ORDERED: NORMAL SALINE 1000 ML 1,000 ML IV ONE (20:52)
[2019-11-15] MEDS ORDERED: MORPHINE SULFATE 10 MG/ML INJ IV ONE (20:52)
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
[2019-11-15] MEDS ORDERED: HYDROMORPHONE HCL INJ/PF 2 MG/ML AMPULE IV ONE ×2 (21:41→22:45)
[2019-11-15 21:43] LABS: ABSOLUTE EOSINOPHILS # (AUTO) 0.1 10^3/uL (0.0-0.6); ABSOLUTE LYMPHOCYTES (AUTO) 2.7 10^3/uL (0.5-4.7); ABSOLUTE MONOCYTES (AUTO) 0.7 10^3/uL (0.1-1.4); ABSOLUTE NEUT (AUTO) 9.3 10^3/uL (1.7-8.2); APPEARANCE,URINE CLEAR; BASOPHILS % (AUTO) 0.3 % (0-2); BILIRUBIN,URINE NEGATIVE (NEGATIVE); COLOR,URINE YELLOW; EOSINOPHILS % (AUTO) 0.5 % (0-6); GLUCOSE, URINE NEGATIVE (NEGATIVE); HEMATOCRIT 35.3 % (37.9-51.0); KETONES,URINE NEGATIVE (NEGATIVE); LEUKOCYTE ESTERASE,URINE NEGATIVE (NEGATIVE); LYMPHOCYTES % (AUTO) 21.2 % (13-45); MEAN CORPUSCULAR HEMOGLOBIN 31.3 pg (27.0-33.4); MEAN CORPUSCULAR HGB CONC 33.9 g/dL (32.0-36.0); MEAN CORPUSCULAR VOLUME 93 fl (80-97); MONOCYTES % (AUTO) 5.7 % (3-13); NITRITE,URINE NEGATIVE (NEGATIVE); PLATELET COUNT 367 10^3/uL (150-450); PROTEIN,URINE NEGATIVE (NEGATIVE); RED BLOOD COUNT 3.82 10^6/uL (4.35-5.55); RED CELL DISTRIBUTION WIDTH 15.5 % (11.5-14.0); SEGMENTED NEUTROPHILS % (AUTO) 72.3 % (42-78); TOTAL CELLS COUNTED % (AUTO) 100 %; URINE SPECIFIC GRAVITY 1.026; UROBILINOGEN,URINE NEGATIVE mg/dL (<2.0); WHITE BLOOD COUNT 12.9 10^3/uL (4.0-10.5)
[2019-11-15 22:02] LABS: ALBUMIN 3.9 g/dL (3.5-5.0); ALKALINE PHOSPHATASE 152 U/L (38-126); ANION GAP 11 (5-19); ASPARTATE AMINO TRANSFERASE 34 U/L (17-59); BILIRUBIN,DIRECT 0.4 mg/dL (0.0-0.4); BILIRUBIN,TOTAL 0.6 mg/dL (0.2-1.3); BLOOD UREA NITROGEN 22 mg/dL (7-20); C-REACTIVE PROTEIN 56.5 mg/L (<10.0); CALCIUM 9.4 mg/dL (8.4-10.2); CARBON DIOXIDE 29 mmol/L (22-30); CHLORIDE 100 mmol/L (98-107); GLUCOSE 95 mg/dL (75-110); POTASSIUM 4.5 mmol/L (3.6-5.0); TOTAL PROTEIN 7.1 g/dL (6.3-8.2)
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
--- NOTE | 2019-11-15 23:57 | RADIOLOGY REPORT (SQ) ---
EXAM DESCRIPTION: XR ANKLE 3 OR MORE VIEWS COMPLETED DATE/TME: 11/15/2019 23:16 CLINICAL HISTORY: 34 years, Male, better views post-op infection COMPARISON: Prior study from 11/15/2019 NUMBER OF VIEWS: 3 TECHNIQUE: Frontal, oblique, and lateral radiographs were obtained LIMITATIONS: None. FINDINGS: Visualized are postoperative changes of stabilization of pre-existing medial malleolus fracture with orthopedic plate and associated screws. Hardware appears well seated and intact. There is also deformity involving the posterior malleolus which demonstrates callus formation, suggesting interval healing. Soft tissue swelling is noted about the medial and lateral aspects of the ankle. In addition, there is a subtle fracture involving the inferior aspect of the lateral talus. IMPRESSION: Postoperative changes of stabilization of medial mild lower fracture with medial plate and associated screws, as above. No significant periprosthetic lucency currently identified. Additional fracture deformities involving the inferior aspect of the lateral talus as well as the posterior malleolus. Soft tissue swelling involving the medial and lateral aspects of the ankle. copyright 2010 [employer]- All Rights Reserved
[2019-11-15 23:58] VITALS: BP 138/95
[2019-11-16] MEDS ORDERED: HYDROMORPHONE HCL INJ/PF 2 MG/ML AMPULE IV ONE (00:21)
== END 2019-11-16 00:46 | disposition short-term general hospital (02) ==
LOC: ER 19:58
DX: T81.42XA Infection following a procedure, deep incisional surgical site, initial encounter (principal); M25.572 Pain in left ankle and joints of left foot; X58.XXXA Exposure to other specified factors, initial encounter
CPT/HCPCS: 96376 ×2; 99285; 96361; 96374; 96375; 36415; 87040; 87070; 87205; 83605; 85025; 86140; 87077; 80053; 81001; 73610; J2270; J1170 ×2; J2405; J7030

== ENCOUNTER 2019-12-01 09:19 | Emergency (ER) | payer OTHER ==
[2019-12-01 10:37] LABS: ALBUMIN 3.8 g/dL (3.5-5.0); ALKALINE PHOSPHATASE 107 U/L (38-126); ANION GAP 8 (5-19); ASPARTATE AMINO TRANSFERASE 24 U/L (17-59); BILIRUBIN,DIRECT 0.3 mg/dL (0.0-0.4); BILIRUBIN,TOTAL 0.5 mg/dL (0.2-1.3); BLOOD UREA NITROGEN 21 mg/dL (7-20); CALCIUM 9.4 mg/dL (8.4-10.2); CARBON DIOXIDE 30 mmol/L (22-30); CHLORIDE 99 mmol/L (98-107); GLUCOSE 81 mg/dL (75-110); POTASSIUM 4.2 mmol/L (3.6-5.0); TOTAL PROTEIN 6.7 g/dL (6.3-8.2)
[2019-12-01] MEDS ORDERED: VANCOMYCIN HCL INJ 1000 MG VIAL IV ONE (11:55)
--- NOTE | 2019-12-01 11:55 | RADIOLOGY REPORT (SQ) ---
EXAM DESCRIPTION: ANKLE LEFT AP/LATERAL IMAGES COMPLETED DATE/TIME: 12/01/2019 11:14 am REASON FOR STUDY: Postop pain COMPARISON: 11/15/2019. NUMBER OF VIEWS: Two views. TECHNIQUE: AP and lateral radiographic images acquired of the left ankle. LIMITATIONS: None. FINDINGS: Intact instrumentation status post plate and screw fixation of distal tibial intra-articul ar fracture. Nondisplaced lateral malleolar fracture. No new fractures. IMPRESSION: Intact instrumentation status post ORIF ankle fractures. TECHNICAL DOCUMENTATION: JOB ID: [id number] 2010 [employer]- All Rights Reserved Reading location - IP/workstation name: [email or web address]
[2019-12-01] MEDS ORDERED: MORPHINE SULFATE 10 MG/ML INJ IV ONE (11:57)
[2019-12-01] MEDS ORDERED: ONDANSETRON HCL INJ/PF 4 MG/2 ML SDV IV ONE (11:57)
[2019-12-01 12:17] LABS: ABSOLUTE BASOPHILS # (AUTO) 0.1 10^3/uL (0.0-0.2); ABSOLUTE EOSINOPHILS # (AUTO) 0.2 10^3/uL (0.0-0.6); ABSOLUTE LYMPHOCYTES (AUTO) 2.2 10^3/uL (0.5-4.7); ABSOLUTE MONOCYTES (AUTO) 0.6 10^3/uL (0.1-1.4); BASOPHILS % (AUTO) 0.7 % (0-2); EOSINOPHILS % (AUTO) 2.5 % (0-6); HEMOGLOBIN 11.8 g/dL (13.5-17.0); LYMPHOCYTES % (AUTO) 27.6 % (13-45); MEAN CORPUSCULAR HEMOGLOBIN 31.6 pg (27.0-33.4); MEAN CORPUSCULAR HGB CONC 35.7 g/dL (32.0-36.0); MONOCYTES % (AUTO) 7.8 % (3-13); PLATELET COUNT 273 10^3/uL (150-450); RED BLOOD COUNT 3.72 10^6/uL (4.35-5.55); RED CELL DISTRIBUTION WIDTH 13.7 % (11.5-14.0); SEGMENTED NEUTROPHILS % (AUTO) 61.4 % (42-78); TOTAL CELLS COUNTED % (AUTO) 100 %; WHITE BLOOD COUNT 8.1 10^3/uL (4.0-10.5)
[2019-12-01 12:18] LABS: MEAN CORPUSCULAR VOLUME 89 fl (80-97)
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
[2019-12-01] MEDS ORDERED: HYDROMORPHONE HCL INJ/PF 2 MG/ML AMPULE IV ONE (13:43)
[2019-12-01 14:03] LABS: PROTHROMBIN TIME 13.4 SEC (11.4-15.4)
[2019-12-01 14:04] LABS: PARTIAL THROMBOPLASTIN TIME 40.8 SEC (23.5-35.8)
[2019-12-01 15:13] LABS: URINE AMPHETAMINES SCREEN NEGATIVE; URINE BARBITURATES SCREEN NEGATIVE; URINE BENZODIAZEPINES SCREEN NEGATIVE; URINE COCAINE SCREEN NEGATIVE; URINE MARIJUANA (THC) SCREEN NEGATIVE; URINE METHADONE SCREEN NEGATIVE; URINE PHENCYCLIDINE SCREEN NEGATIVE
--- NOTE | 2019-12-01 15:48 | RADIOLOGY REPORT (SQ) ---
EXAM DESCRIPTION: VENOUS UNILATERAL LOWER IMAGES COMPLETED DATE/TIME: 12/01/2019 3:34 pm REASON FOR STUDY: left LE pain COMPARISON: None. TECHNIQUE: Dynamic and static lowe scale and color images acquired of the left leg venous system. Se lected spectral images acquired with additional compression and augmentation maneuvers. The contralat eral common femoral vein and saphenofemoral junction were also imaged. Images stored on PACS. LIMITATIONS: None. FINDINGS: COMMON FEMORAL: Normal phasicity, compression and augmentation. No visualized echogenic ma terial on lowe scale. No defects on color images. FEMORAL: Normal compression and augmentation. No visualized echogenic material on lowe scale. No defe cts on color images. POPLITEAL: Normal compression, augmentation. No visualized echogenic material on lowe scale. No defec ts on color images. CALF VESSELS: Normal compression, augmentation. No visualized echogenic material on lowe scale. No de fects on color images. GSV and SSV: Normal compression, augmentation. No visualized echogenic material on lowe scale. No def ects on color images. ANY DEEP VENOUS INSUFFICIENCY: Not evaluated. ANY EVIDENCE OF POPLITEAL CYST: No. OTHER: No other significant finding. CONTRALATERAL COMMON FEMORAL VEIN AND SAPHENOFEMORAL JUNCTION: Normal phasicity, compression and augmentation. No visualized echogenic material on lowe scale. No de fects on color images. IMPRESSION: NO EVIDENCE DVT OR SVT IN THE LEFT LEG. TECHNICAL DOCUMENTATION: JOB ID: [id number] 2010 [employer]- All Rights Reserved Reading location - IP/workstation name: [email or web address]
[2019-12-01] MEDS: HYDROMORPHONE HCL INJ/PF 2 MG/ML AMPULE IV PRN ×2 (17:38→19:54)
[2019-12-01 20:01] VITALS: BP 115/64
== END 2019-12-01 19:56 | disposition short-term general hospital (02) ==
LOC: ER 09:19
DX: T81.49XA Infection following a procedure, other surgical site, initial encounter (principal); Y83.8 Other surgical procedures as the cause of abnormal reaction of the patient, or of later complication, without mention of misadventure at the time of the procedure; S82.892D Other fracture of left lower leg, subsequent encounter for closed fracture with routine healing; V29.9XXD Motorcycle rider (driver) (passenger) injured in unspecified traffic accident, subsequent encounter; Z79.899 Other long term (current) drug therapy; Z79.1 Long term (current) use of non-steroidal anti-inflammatories (NSAID); Z88.6 Allergy status to analgesic agent; Z88.5 Allergy status to narcotic agent
CPT/HCPCS: 96376; 99285; 96375; 96365; 36415; 85025; 85652; 85610; 85730; 86140; 80053; 80307; 93971; 73600; J2270; J1170; J2405; J3370